=== PATIENT | female | born 1955 | race Caucasian/White ===

== ENCOUNTER → 2016-06-13 | Outpatient (CLI) | payer OTHER ==
[~2016-06-13] MED LIST: REGADENOSON 0.4 MG/5 ML SYRINGE ONE
== END | disposition home or self-care (01) ==
LOC: CFH 09:57
PROVIDERS: ATTEND Internal Medicine Cardiovascular Disease
DX: I08.1 Rheumatic disorders of both mitral and tricuspid valves (principal); I37.1 Nonrheumatic pulmonary valve insufficiency; R10.13 Epigastric pain; Z90.49 Acquired absence of other specified parts of digestive tract
CPT/HCPCS: 74000; 78452; 93017; 93306; A9502; J2785

== ENCOUNTER → 2016-07-28 | Outpatient (CLI) | payer OTHER | END | disposition home or self-care (01) | LOC: CFH 12:55 | PROVIDERS: ATTEND Colon & Rectal Surgery | DX: Z01.818 Encounter for other preprocedural examination (principal); R10.84 Generalized abdominal pain | CPT/HCPCS: 74270 ==

== ENCOUNTER → 2016-08-18 | Outpatient (CLI) | payer OTHER ==
[~2016-08-18] MED LIST changes: +OMNIPAQUE 350 MG/ML, 100ML BOTTLE ONE; -REGADENOSON 0.4 MG/5 ML SYRINGE ONE
== END | disposition home or self-care (01) ==
LOC: CFH 12:20
PROVIDERS: ATTEND Surgery
DX: K59.00 Constipation, unspecified (principal); M51.37 Other intervertebral disc degeneration, lumbosacral region; Z90.49 Acquired absence of other specified parts of digestive tract
CPT/HCPCS: 74177; Q9967

== ENCOUNTER → 2016-08-22 | Outpatient (CLI) | payer OTHER | END | disposition home or self-care (01) | LOC: CFH 12:55 | PROVIDERS: ATTEND Surgery | DX: R10.30 Lower abdominal pain, unspecified (principal); Z90.49 Acquired absence of other specified parts of digestive tract | CPT/HCPCS: 74250 ==

== ENCOUNTER 2016-10-02 09:53 | Day surgery (SDC) | payer OTHER ==
[2016-09-29 13:16] LABS: ASPARTATE AMINO TRANSFERASE 33 U/L (15-37); BLOOD UREA NITROGEN 15 mg/dL (7-18)
[~2016-10-02] VITALS: Ht 167.6 cm; Wt 70.0 kg
[~2016-10-02 09:53] MED LIST changes: +ACYC-113 PO; +ALBU90AE INH; +ALIR75PE SC; +ASPI-621 PO; +DIAZ2TAB PO; +HORMONE INJECTION; +HYOS0.126 PO; +IBUP800T PO; +OMEP40CA6 PO; -OMNIPAQUE 350 MG/ML, 100ML BOTTLE ONE; +ONDA4TAB7 PO; +PERCOCET PO; +THYR16.2 PO; +TRAM50TA2 PO
[2016-10-02] MEDS ORDERED: LACTATED RINGERS 1,000 ML IV SCH (10:57)
[2016-10-02 11:04] VITALS: BP 107/78
[2016-10-02] MEDS ORDERED: ONDANSETRON 2MG/ML, 2ML ONE ×4 (11:30→16:35)
[2016-10-02] MEDS ORDERED: ONDANSETRON 2MG/ML, 2ML IVPush ONE (11:30)
[2016-10-02] MEDS ORDERED: HYDROmorphone 1 MG/ML, 1ML IV ONE (12:00)
[2016-10-02] MEDS ORDERED: SCOPOLAMINE PATCH, 1.5MG PATCH.TD72 TD ONE ×2 (12:00→12:02)
[2016-10-02] MEDS ORDERED: HYDROmorphone 2 MG/ML, 1ML ONE ×2 (12:03→13:28)
[2016-10-02] MEDS ORDERED: HYDROmorphone 1 MG/ML, 1ML IV PRN (14:00)
[2016-10-02] MEDS ORDERED: MIDAZOLAM 1 MG/ML, 2ML ONE (14:14)
[2016-10-02] MEDS ORDERED: FENTANYL PF 250 MCG/5ML ONE (14:14)
[2016-10-02] MEDS ORDERED: ACETAMINOPHEN 325 MG TABLET PO PRN (14:30)
[2016-10-02] MEDS ORDERED: MEPERIDINE/PF 25MG/0.5ML IVPush PRN (14:30)
[2016-10-02] MEDS ORDERED: KETOROLAC 30 MG/1 ML IV PRN (14:30)
[2016-10-02] MEDS ORDERED: MIDAZOLAM 1 MG/ML, 2ML IV PRN (14:30)
[2016-10-02] MEDS ORDERED: OXYcodone 5 MG/5 ML ORAL.SOL UDC PO PRN (14:30)
[2016-10-02] MEDS ORDERED: ONDANSETRON 2MG/ML, 2ML IVPush PRN (14:30)
[2016-10-02] MEDS ORDERED: PROMETHAZINE 25 MG/ML, 1ML IV PRN (14:30)
[2016-10-02] MEDS ORDERED: EPHEDRINE 50 MG/ML, 1ML IVPush PRN (14:30)
[2016-10-02] MEDS ORDERED: HYDROcodone/APAP 7.5-325MG/15ML UDC PO PRN (14:30)
[2016-10-02] MEDS ORDERED: LABETALOL 5MG/ML, 20ML IV PRN (14:30)
[2016-10-02] MEDS ORDERED: hydrALAzine 20 MG/ML, 1ML IV PRN (14:30)
[2016-10-02] MEDS ORDERED: HEPARIN 1,000 UNITS/ML, 10ML ONE (14:51)
[2016-10-02] MEDS ORDERED: BUPIVACAINE/PF 0.25% ONE (14:51)
[2016-10-02] MEDS ORDERED: EPINEPHRINE 1 MG/ML, 1ML ONE (14:51)
[2016-10-02] MEDS ORDERED: GLYCOPYRROLATE 0.2MG/1ML ONE (15:17)
[2016-10-02] MEDS ORDERED: KETOROLAC 30 MG/1 ML ONE (15:17)
[2016-10-02] MEDS ORDERED: DEXAMETHASONE 4 MG/ML, 1ML ONE (15:17)
[2016-10-02] MEDS ORDERED: ROCURONIUM 10 MG/ML ONE (15:17)
[2016-10-02] MEDS ORDERED: CEFOTETAN 1 GM ONE (15:17)
[2016-10-02] MEDS ORDERED: NEOSTIGMINE 1 MG/ML, 10ML ONE (15:17)
[2016-10-02] MEDS ORDERED: PROPOFOL 10 MG/ML, 20ML ONE (15:17)
[2016-10-02] MEDS ORDERED: SUGAMMADEX 200 MG/2 ML IVPush ONE (16:00)
[2016-10-02] MEDS ORDERED: FENTANYL PF 100 MCG/2ML ONE (16:32)
[2016-10-02] MEDS ORDERED: ACETAMINOPHEN 325 MG/10.15 ML UDC ONE (16:32)
[2016-10-02] MEDS ORDERED: HYDROmorphone 1 MG/ML, 1ML ONE (16:32)
[2016-10-02] MEDS ORDERED: MEPERIDINE/PF 25MG/0.5ML ONE (16:33)
[2016-10-02] MEDS ORDERED: OXYcodone 5 MG/5 ML ORAL.SOL UDC ONE (16:33)
[2016-10-02] MEDS: FENTANYL PF 100 MCG/2ML IV PRN ×2 (16:40→16:50)
[2016-10-02] MEDS: HYDROmorphone 1 MG/ML, 1ML IV PRN ×2 (16:45→17:20)
== END 2016-10-02 19:19 ==
LOC: OUT 09:53
PROVIDERS: ATTEND Specialist
DX: K66.8 Other specified disorders of peritoneum (principal); F41.9 Anxiety disorder, unspecified; E03.9 Hypothyroidism, unspecified; N80.9 Endometriosis, unspecified; Z87.39 Personal history of other diseases of the musculoskeletal system and connective tissue; Z90.710 Acquired absence of both cervix and uterus; Z90.49 Acquired absence of other specified parts of digestive tract; Z98.890 Other specified postprocedural states
CPT/HCPCS: 36415; 49321; 71020; 80053; 81003; 85025; 85610; 85730; 86850; 86900; 86923; 88304; 93005; J0171; J1100; J1170; J1644; J1885; J2175; J2250; J2405; J2704; J2710; J3010; J3490; J7120; S0074

== ENCOUNTER → 2016-12-14 | Outpatient (CLI) | payer OTHER ==
[~2016-12-14] MED LIST changes: -HYOS0.126 PO; +HYOS0.1282 PO; +IBUP-1223 PO; -IBUP800T PO
== END | disposition home or self-care (01) ==
LOC: CFH 13:06
PROVIDERS: ATTEND Internal Medicine
DX: R06.00 Dyspnea, unspecified (principal)
CPT/HCPCS: 71250

== ENCOUNTER 2017-07-09 12:14 | Emergency (ER) | payer OTHER ==
[~2017-07-09] VITALS: Ht 170.2 cm; Wt 72.0 kg
[2017-07-09] MEDS ORDERED: LACT10SO28 PO (12:34)
[2017-07-09] MEDS ORDERED: SODIUM CHLORIDE 0.9% 1,000 ML IV ONE (12:36)
[2017-07-09] MEDS ORDERED: BUPR-173 PO (12:40)
[2017-07-09] MEDS ORDERED: CALC667C PO (12:40)
[2017-07-09] MEDS ORDERED: ASPI-515 PO (12:40)
[2017-07-09] MEDS ORDERED: CHOL2000 PO (12:40)
[2017-07-09] MEDS ORDERED: POTA25TA4 PO (12:40)
[2017-07-09] MEDS ORDERED: LORazepam 2 MG/ML, 1ML ONE ×2 (12:43→15:02)
[2017-07-09 13:00] LABS: BASOPHILS # (AUTO) 0.11 x10^3/uL (0-0.1); BASOPHILS % (AUTO) 1 % (0-1); EOSINOPHILS # (AUTO) 0.13 x10^3/uL (0-0.4); EOSINOPHILS % (AUTO) 2 % (1-7); HCT (SEDRATE) 44.1 % (34.6-47.8); LYMPHOCYTES % (AUTO) 27 % (22-44); MD NO; MEAN CORPUSCULAR HEMOGLOBIN 31.7 pg (27.0-34.8); MEAN CORPUSCULAR HGB CONC 34.4 g/dL (32.4-35.8); MEAN CORPUSCULAR VOLUME 92.1 fL (80-100); MEAN PLATELET VOLUME 7.8 fL (7.4-10.4); MONOCYTES # (AUTO) 0.45 x10^3/uL (0.2-0.8); MONOCYTES % (AUTO) 5 % (2-9); NEUTROPHILS # (AUTO) 5.69 x10^3/uL (1.8-6.8); NEUTROPHILS % (AUTO) 66 % (42-75); PLATELET COUNT 238 x10^3/uL (130-400); RED BLOOD COUNT 4.79 x10^6/uL (3.82-5.3)
[2017-07-09] MEDS ORDERED: LORazepam 2 MG/ML, 1ML IVPush ONE ×2 (13:00→15:00)
[2017-07-09] MEDS ORDERED: SODIUM CHLORIDE FLUSH 10ML SYR IVF ONE (13:00)
[2017-07-09 13:09] LABS: ALANINE AMINOTRANSFERASE 36 U/L (12-78); ANION GAP 10 mmol/L (5-15); CALCIUM 8.5 mg/dL (8.5-10.1); CHLORIDE 109 mmol/L (98-107); CREATININE 0.89 mg/dL (0.55-1.02)
[2017-07-09 13:20] LABS: ALKALINE PHOSPHATASE 63 U/L (45-117); BILIRUBIN,TOTAL 0.5 mg/dL (0.2-1.0); T4 (THYROXINE) 8.3 mcg/dL (4.8-13.9); TOTAL PROTEIN 7.6 g/dL (6.4-8.2)
[2017-07-09 13:45] LABS: SEDIMENTATION RATE 7 mm/hr (0-20)
[2017-07-09 13:48] LABS: MICROSCOPIC NOT IND
[2017-07-09 13:54] LABS: CULTURE INDICATED? NO
[2017-07-09 15:12] VITALS: BP 122/84
== END 2017-07-09 17:16 | disposition home or self-care (01) ==
LOC: ED 15:10
DX: R55 Syncope and collapse (principal); R42 Dizziness and giddiness; F41.1 Generalized anxiety disorder; I10 Essential (primary) hypertension; Z90.49 Acquired absence of other specified parts of digestive tract; E03.9 Hypothyroidism, unspecified; Z79.899 Other long term (current) drug therapy
CPT/HCPCS: 36415; 70450; 80053; 81003; 82306; 83605; 83735; 83970; 84436; 84443; 84481; 85025; 85651; 86140; 93005; 96361; 96374; 96376; 99285; J2060; J7030

== ENCOUNTER → 2017-11-19 | Outpatient (CLI) | payer OTHER ==
[~2017-11-19] MED LIST changes: +ASPI-515 PO; +BUPR-173 PO; +CALC667C PO; +CHOL2000 PO; +LACT10SO28 PO; +POTA25TA4 PO
== END | disposition home or self-care (01) ==
LOC: STAR 10:09
PROVIDERS: ATTEND Internal Medicine
DX: Z01.818 Encounter for other preprocedural examination (principal)
CPT/HCPCS: 93005

== ENCOUNTER → 2018-07-17 | Outpatient (CLI) | payer OTHER, MEDICARE ==
[~2018-07-17] MED LIST changes: -ASPI-621 PO; +ASPI81TA45 PO; +GADOBUTROL 7.5 MMOL/7.5 ML PFS ONE
== END | disposition home or self-care (01) ==
LOC: CFH 15:08
PROVIDERS: ATTEND Psychiatry & Neurology Neurology
DX: R51 Headache (principal); G93.9 Disorder of brain, unspecified
CPT/HCPCS: 70553; A9585

== ENCOUNTER → 2018-09-17 | Outpatient (CLI) | payer OTHER, MEDICARE ==
[~2018-09-17] MED LIST changes: -GADOBUTROL 7.5 MMOL/7.5 ML PFS ONE
== END | disposition home or self-care (01) ==
LOC: CFH 12:17
PROVIDERS: ATTEND Internal Medicine
DX: Z12.31 Encounter for screening mammogram for malignant neoplasm of breast (principal)
CPT/HCPCS: 77063; 77067

== ENCOUNTER → 2019-12-18 | Outpatient (CLI) | payer OTHER, MEDICARE ==
[~2019-12-18] MED LIST changes: +OMEP40CA42 PO; -OMEP40CA6 PO
== END | disposition home or self-care (01) ==
LOC: RAD 12:30
PROVIDERS: ATTEND Registered Nurse
DX: R19.4 Change in bowel habit (principal); R10.9 Unspecified abdominal pain; R94.4 Abnormal results of kidney function studies
CPT/HCPCS: 74270; 76770

== ENCOUNTER 2020-02-03 13:06 | Outpatient (CLI) | payer MEDICARE, OTHER | END 2020-02-03 23:59 | disposition home or self-care (01) | LOC: CFH 13:06 | PROVIDERS: ATTEND Obstetrics & Gynecology Gynecology | DX: R92.2 Inconclusive mammogram (principal); J34.89 Other specified disorders of nose and nasal sinuses; R09.82 Postnasal drip; R51.9 Headache, unspecified | CPT/HCPCS: 70486; 76641 ==

== ENCOUNTER → 2020-05-24 | Outpatient (CLI) | payer MEDICARE, OTHER ==
[~2020-05-24] MED LIST changes: -ASPI-515 PO; +ASPI-963 PO; +REGADENOSON 0.4 MG/5 ML SYRINGE ONE
== END | disposition home or self-care (01) ==
LOC: CFH 12:12
PROVIDERS: ATTEND Internal Medicine Cardiovascular Disease
DX: I36.1 Nonrheumatic tricuspid (valve) insufficiency (principal); R07.89 Other chest pain; R00.2 Palpitations
CPT/HCPCS: 78452; 93017; 93306; A9502; J2785